=== PATIENT | female | born 1950 | race African-American/Black ===

== ENCOUNTER 2018-07-18 15:54 | Emergency (ER) | payer MEDICARE, MEDICAID ==
[~2018-07-18] VITALS: Ht 172.7 cm; Wt 78.0 kg
[~2018-07-18 15:54] MED LIST: HYDR12.54 PO; METO-539 PO; VALS80TA2 PO
[2018-07-18] MEDS ORDERED: SODIUM CHLORIDE 0.9% 1,000 ML IV ONE (16:31)
[2018-07-18] MEDS ORDERED: ONDANSETRON HCL 4MG/2ML INJ IV STA (16:31)
[2018-07-18] MEDS ORDERED: MORPHINE SULFATE 4 MG/ML CPJ (NOT FOR IM USE) IV STA (16:31)
[2018-07-18 16:49] LABS: BASOPHILS % 0.6 % (0.0-2.0); EOSINOPHILS % 0.3 % (0.0-5.0); HEMATOCRIT. 38.2 % (36.0-48.0); HEMOGLOBIN. 12.4 g/dL (12.0-16.0); LYMPHOCYTES % 29.3 % (20.0-50.0); MEAN CORPUSCULAR HEMOGLOBIN 30.1 pg (28.0-32.0); MEAN CORPUSCULAR VOLUME 92.8 fL (81.0-99.0); MONOCYTES % 3.7 % (2.0-8.0); NEUTROPHILS % 66.1 % (40.0-76.0); PLATELET 170 x1000/uL (130-400); RED BLOOD CELL COUNT 4.12 mill/uL (4.2-5.4); RED CELL DISTRIBUTION WIDTH 14.8 % (11.6-14.6)
[2018-07-18 16:54] LABS: CHLORIDE 105 mEq/L (98-107)
[2018-07-18 16:56] LABS: PROTHROMBIN TIME 10.1 sec (9.1-11.1)
[2018-07-18] MEDS ORDERED: KETOROLAC 15MG/ML VIAL IV ONE (18:15)
[2018-07-18 18:54] VITALS: BP 165/81
== END 2018-07-18 19:08 | disposition home or self-care (01) ==
LOC: ER 16:41 → CANBEDREQ 19:27
DX: M79.10 Myalgia, unspecified site (principal); I10 Essential (primary) hypertension; Z96.659 Presence of unspecified artificial knee joint; Z98.890 Other specified postprocedural states
CPT/HCPCS: 36415; 71045; 80053; 85025; 85610; 93005; 96374; 96375; 99285; C1893; J1885; J2270; J2405; J7030

== ENCOUNTER 2018-11-22 12:36 | Inpatient (IN) | payer MEDICARE, MEDICAID ==
[~2018-11-22] VITALS: Ht 167.6 cm; Wt 86.7 kg
[2018-11-22] MEDS ORDERED: MORPHINE SULFATE 2 MG/ML CPJ (NOT FOR IM USE) IV ONE (14:30)
[2018-11-22] MEDS ORDERED: MORPHINE SULFATE 4 MG/ML CPJ (NOT FOR IM USE) IV NR (15:30)
[2018-11-22 16:42] LABS: BASOPHILS % 1.4 % (0.0-2.0); HEMATOCRIT. 35.2 % (36.0-48.0); HEMOGLOBIN. 11.2 g/dL (12.0-16.0); LYMPHOCYTES % 54.6 % (20.0-50.0); MEAN CORPUSCULAR HEMOGLOBIN 28.5 pg (28.0-32.0); MEAN CORPUSCULAR VOLUME 89.4 fL (81.0-99.0); MEAN PLATELET VOLUME 9.6 fl (7.4-10.4); MONOCYTES % 10.1 % (2.0-8.0); NEUTROPHILS % 28.9 % (40.0-76.0); PLATELET 134 x1000/uL (130-400); RED BLOOD CELL COUNT 3.94 mill/uL (4.2-5.4); RED CELL DISTRIBUTION WIDTH 14.5 % (11.6-14.6)
[2018-11-22 16:48] LABS: CHLORIDE 111 mEq/L (98-107)
[2018-11-22 16:50] LABS: PARTIAL THROMBOPLASTIN TIME 24.6 sec (23.4-31.0); PROTHROMBIN TIME 9.9 sec (9.1-11.1)
[2018-11-22 16:55] LABS: CLARITY URINE CLEAR (CLEAR); COLOR URINE YELLOW (YELLOW); KETONES URINE NEGATIVE (NEGATIVE); LEUKOCYTE ESTERASE URINE TRACE (NEGATIVE); NITRITE URINE NEGATIVE (NEGATIVE); OCCULT BLOOD URINE NEGATIVE (NEGATIVE); PROTEIN URINE NEGATIVE (NEGATIVE); SPECIFIC GRAVITY URINE 1.015 (1.005-1.030); UROBILINOGEN URINE 0.2 E.U./dL (0.2-1.0)
[2018-11-22] MEDS ORDERED: GADOBENATE DIMEGLUMINE 529 MG/ML 10ML IV ONE (19:05)
[2018-11-22] MEDS ORDERED: DOCUSATE SODIUM 100MG CAPSULE PO PRN (20:00)
[2018-11-22] MEDS ORDERED: TRAMADOL 50MG TABLET PO PRN (20:00)
[2018-11-22] MEDS ORDERED: NITROGLYCERIN 0.4MG TABLET SL SL PRN (20:00)
[2018-11-22] MEDS ORDERED: MAGNESIUM/ALUMINUM HYDROXIDE/SIMETHICONE 30ML UDC PO PRN (20:00)
[2018-11-22] MEDS ORDERED: NA PHOS,M-B/NA PHOS,DI-BA ENEMA 118ML PR PRN (20:00)
[2018-11-22] MEDS ORDERED: LORAZEPAM 0.5MG TABLET PO PRN (20:00)
[2018-11-22] MEDS ORDERED: IPRATROPIUM/ALBUTEROL 0.5-3(2.5)MG/3ML NEB INH PRN (20:00)
[2018-11-22] MEDS ORDERED: ACETAMINOPHEN 325MG TABLET PO PRN (20:00)
[2018-11-22] MEDS ORDERED: ONDANSETRON HCL 4MG/2ML INJ IV PRN (20:00)
[2018-11-22] MEDS ORDERED: GUAIFENESIN 200MG/10ML SUGAR FREE UDC PO PRN (20:00)
[2018-11-23] VITALS (7 sets, daily range): BP systolic 120–148; BP diastolic 66–75
[2018-11-23] MEDS ORDERED: NIFE10CA PO (00:24)
[2018-11-23] MEDS ORDERED: IBUP50DR2 PO (00:26)
[2018-11-23] MEDS ORDERED: HYDR-4009 PO (00:26)
[2018-11-23] MEDS ORDERED: LENA2.5C PO (00:27)
[2018-11-23] MEDS: MORPHINE SULFATE 4 MG/ML CPJ (NOT FOR IM USE) IV PRN ×4 (00:47→20:00)
[2018-11-23] MEDS ORDERED: ZOLPIDEM TARTRATE 5MG TABLET PO PRN (00:52)
[2018-11-23] MEDS: CEFTRIAXONE 1 G PREMIX 50 ML IV SCH (02:26)
[2018-11-23] MEDS: ENOXAPARIN 40MG/0.4ML SYR SUBCUT SCH (08:55)
[2018-11-23] MEDS: ZINC SULFATE 220 MG ( 50 ) CAPSULE PO SCH (08:55)
[2018-11-23] MEDS: FAMOTIDINE 20MG TABLET PO SCH ×2 (08:55→20:00)
[2018-11-23] MEDS: METOPROLOL TARTRATE 25MG TABLET PO SCH ×2 (08:55→20:00)
[2018-11-23] MEDS: ASCORBIC ACID 500 MG TABLET PO SCH ×2 (08:55→20:00)
[2018-11-23] MEDS ORDERED: INFLUENZA VIRUS VACCINE(AFLURIA) 0.5ML SYR IM ONE (13:00)
[2018-11-24] VITALS: BP 170/88
[2018-11-24] MEDS: MORPHINE SULFATE 4 MG/ML CPJ (NOT FOR IM USE) IV PRN ×6 (00:27→22:36)
[2018-11-24] MEDS: CLONIDINE 0.1MG TABLET PO PRN (00:27)
[2018-11-24] MEDS: CEFTRIAXONE 1 G PREMIX 50 ML IV SCH (01:49)
[2018-11-24 04:00] VITALS: BP 142/60
[2018-11-24 08:00] VITALS: BP 137/64
[2018-11-24] MEDS: METOPROLOL TARTRATE 25MG TABLET PO SCH ×2 (09:20→20:13)
[2018-11-24] MEDS: ZINC SULFATE 220 MG ( 50 ) CAPSULE PO SCH (09:20)
[2018-11-24] MEDS: ASCORBIC ACID 500 MG TABLET PO SCH ×2 (09:20→20:12)
[2018-11-24] MEDS: FAMOTIDINE 20MG TABLET PO SCH ×2 (09:20→20:12)
[2018-11-24] MEDS: ENOXAPARIN 40MG/0.4ML SYR SUBCUT SCH (09:21)
[2018-11-24 12:00] VITALS: BP 142/75
[2018-11-24 16:00] VITALS: BP 136/69
[2018-11-24 20:00] VITALS: BP 139/76
[2018-11-25] VITALS: BP 137/56
[2018-11-25 04:00] VITALS: BP 148/87
[2018-11-25] MEDS: MORPHINE SULFATE 4 MG/ML CPJ (NOT FOR IM USE) IV PRN ×2 (04:25→09:17)
[2018-11-25] MEDS ORDERED: CEFTRIAXONE 1 G PREMIX 50 ML IV SCH (05:00)
[2018-11-25 08:00] VITALS: BP 165/71
[2018-11-25] MEDS: ENOXAPARIN 40MG/0.4ML SYR SUBCUT SCH (08:31)
[2018-11-25] MEDS: FAMOTIDINE 20MG TABLET PO SCH (08:31)
[2018-11-25] MEDS: ZINC SULFATE 220 MG ( 50 ) CAPSULE PO SCH (08:32)
[2018-11-25] MEDS: ASCORBIC ACID 500 MG TABLET PO SCH (08:32)
[2018-11-25] MEDS: METOPROLOL TARTRATE 25MG TABLET PO SCH (08:32)
[2018-11-25 12:12] VITALS: BP 170/78
[2018-11-25] MEDS: CLONIDINE 0.1MG TABLET PO PRN (12:26)
[2018-11-25 12:33] VITALS: BP 170/78
[2018-11-25 13:15] VITALS: BP 163/71
== END 2018-11-25 13:30 | disposition home health service (06) | DRG 690 ==
LOC: ER 12:36 → 5WST 21:27 → EDBEDREQTM 21:29 → EDBEDREQ 21:29 → ENRESERV 22:45
PROVIDERS: ADMIT Internal Medicine; ATTEND Internal Medicine
DX: N39.0 Urinary tract infection, site not specified (principal); C90.00 Multiple myeloma not having achieved remission; I10 Essential (primary) hypertension; Z96.659 Presence of unspecified artificial knee joint; R26.2 Difficulty in walking, not elsewhere classified; D63.8 Anemia in other chronic diseases classified elsewhere; M19.90 Unspecified osteoarthritis, unspecified site; M48.061 Spinal stenosis, lumbar region without neurogenic claudication; D72.819 Decreased white blood cell count, unspecified; Z79.899 Other long term (current) drug therapy; Z85.038 Personal history of other malignant neoplasm of large intestine; Z92.3 Personal history of irradiation; Z86.73 Personal history of transient ischemic attack (TIA), and cerebral infarction without residual deficits
CPT/HCPCS: 36415; 70551; 71045; 72141; 72146; 72158; 80061; 83036; 83880; 84484; 90686; 93005; 93970; 96374; 97116; 97162; 97166; 97530; 99285; A9577; J0696; J1650; J2270; J7040

== ENCOUNTER 2019-03-15 13:40 | Emergency (ER) | payer MEDICARE, MEDICAID ==
[~2019-03-15] VITALS: Ht 165.1 cm; Wt 83.0 kg
[~2019-03-15 13:40] MED LIST changes: +HYDR-4009 PO; -HYDR12.54 PO; +IBUP50DR2 PO; +LENA2.5C PO; +NIFE10CA PO
[2019-03-15] MEDS ORDERED: TRAMADOL 50MG TABLET PO ONE (17:00)
[2019-03-15 17:25] LABS: EOSINOPHILS % 4.6 % (0.0-5.0); HEMATOCRIT. 29.6 % (36.0-48.0); HEMOGLOBIN. 9.6 g/dL (12.0-16.0); LYMPHOCYTES % 53.4 % (20.0-50.0); MEAN CORPUSCULAR HEMOGLOBIN 28.8 pg (28.0-32.0); MEAN CORPUSCULAR VOLUME 88.7 fL (81.0-99.0); MEAN PLATELET VOLUME 9.2 fl (7.4-10.4); MONOCYTES % 14.1 % (2.0-8.0); NEUTROPHILS % 26.9 % (40.0-76.0); PLATELET 117 x1000/uL (130-400); RED BLOOD CELL COUNT 3.34 mill/uL (4.2-5.4); RED CELL DISTRIBUTION WIDTH 14.9 % (11.6-14.6)
[2019-03-15 17:28] LABS: CHLORIDE 111 mEq/L (98-107); PROTHROMBIN TIME 10.3 sec (9.6-11.0)
[2019-03-15 17:48] LABS: CLARITY URINE CLEAR (CLEAR); COLOR URINE YELLOW (YELLOW); KETONES URINE NEGATIVE (NEGATIVE); LEUKOCYTE ESTERASE URINE TRACE (NEGATIVE); NITRITE URINE NEGATIVE (NEGATIVE); OCCULT BLOOD URINE NEGATIVE (NEGATIVE); PROTEIN URINE NEGATIVE (NEGATIVE); SPECIFIC GRAVITY URINE 1.023 (1.005-1.030); UROBILINOGEN URINE 0.2 E.U./dL (0.2-1.0)
[2019-03-15 19:38] VITALS: BP 113/80
== END 2019-03-15 19:45 | disposition home or self-care (01) ==
LOC: ER 16:27
DX: M54.5 Low back pain (principal); I10 Essential (primary) hypertension; C90.00 Multiple myeloma not having achieved remission; Z98.890 Other specified postprocedural states; Z88.5 Allergy status to narcotic agent; Z79.899 Other long term (current) drug therapy
CPT/HCPCS: 36415; 72131; 99284

== ENCOUNTER 2019-04-15 19:48 | Emergency (ER) | payer MEDICARE, MEDICAID ==
[~2019-04-15] VITALS: Ht 170.2 cm; Wt 77.0 kg
[2019-04-15] MEDS ORDERED: KETOROLAC 60MG/2ML VIAL IM ONE (20:15)
[2019-04-15] MEDS ORDERED: CYCLOBENZAPRINE 10MG TABLET PO ONE (20:15)
[2019-04-15 22:03] VITALS: BP 129/76
== END 2019-04-15 22:06 | disposition home or self-care (01) ==
LOC: ER 19:48
DX: G89.29 Other chronic pain (principal); M54.5 Low back pain; M79.604 Pain in right leg; I10 Essential (primary) hypertension; Z98.890 Other specified postprocedural states; Z79.899 Other long term (current) drug therapy; Z88.5 Allergy status to narcotic agent; Z85.9 Personal history of malignant neoplasm, unspecified
CPT/HCPCS: 96372; 99283; J1885

== ENCOUNTER 2019-05-17 13:38 | Emergency (ER) | payer MEDICARE, MEDICAID ==
[~2019-05-17] VITALS: Ht 165.1 cm; Wt 86.0 kg
[2019-05-17] MEDS ORDERED: SODIUM CHLORIDE 0.9% 1,000 ML IV ONE (13:59)
[2019-05-17] MEDS ORDERED: MORPHINE SULFATE 4 MG/ML CPJ (NOT FOR IM USE) IV STA ×2 (13:59→16:10)
[2019-05-17] MEDS ORDERED: ONDANSETRON HCL 4MG/2ML INJ IV STA ×2 (13:59→16:10)
[2019-05-17 14:57] LABS: BASOPHILS % 2.9 % (0.0-2.0); EOSINOPHILS % 3.1 % (0.0-5.0); HEMATOCRIT. 28.6 % (36.0-48.0); HEMOGLOBIN. 9.3 g/dL (12.0-16.0); LYMPHOCYTES % 36.8 % (20.0-50.0); MEAN CORPUSCULAR VOLUME 89.4 fL (81.0-99.0); MEAN PLATELET VOLUME 9.5 fl (7.4-10.4); MONOCYTES % 11.2 % (2.0-8.0); PLATELET 121 x1000/uL (130-400)
[2019-05-17 15:02] LABS: CHLORIDE 112 mEq/L (98-107)
[2019-05-17 15:03] LABS: PROTHROMBIN TIME 10.5 sec (9.6-11.0)
[2019-05-17] MEDS ORDERED: KETOROLAC 30MG/ML VIAL IV ONE (15:15)
[2019-05-17 16:34] LABS: CLARITY URINE CLEAR (CLEAR); COLOR URINE YELLOW (YELLOW); KETONES URINE TRACE (NEGATIVE); LEUKOCYTE ESTERASE URINE 1+ (NEGATIVE); NITRITE URINE NEGATIVE (NEGATIVE); OCCULT BLOOD URINE NEGATIVE (NEGATIVE); PROTEIN URINE NEGATIVE (NEGATIVE); SPECIFIC GRAVITY URINE 1.011 (1.005-1.030); UROBILINOGEN URINE 0.2 E.U./dL (0.2-1.0)
[2019-05-17] MEDS ORDERED: CEFTRIAXONE 1 G PREMIX 50 ML IV ONE (16:45)
[2019-05-17 17:40] VITALS: BP 130/72
== END 2019-05-17 17:51 | disposition home or self-care (01) ==
LOC: ER 13:38
DX: M54.9 Dorsalgia, unspecified (principal); M79.605 Pain in left leg; M79.604 Pain in right leg; N39.0 Urinary tract infection, site not specified; E86.0 Dehydration; D61.818 Other pancytopenia; I10 Essential (primary) hypertension; Z85.79 Personal history of other malignant neoplasms of lymphoid, hematopoietic and related tissues; Z85.038 Personal history of other malignant neoplasm of large intestine; Z90.49 Acquired absence of other specified parts of digestive tract; Z98.890 Other specified postprocedural states; Z92.21 Personal history of antineoplastic chemotherapy; Z88.6 Allergy status to analgesic agent; Z79.899 Other long term (current) drug therapy; W18.11XA Fall from or off toilet without subsequent striking against object, initial encounter; Y93.89 Activity, other specified; Y92.89 Other specified places as the place of occurrence of the external cause; Y99.8 Other external cause status
CPT/HCPCS: 36415; 71045; 80053; 81003; 83605; 84484; 85025; 85610; 93005; 96374; 96375; 96376; 99284; J0696; J1885; J2270; J2405; J7030

== ENCOUNTER 2019-07-07 09:25 | Emergency (ER) | payer MEDICARE, MEDICAID ==
[~2019-07-07] VITALS: Ht 165.1 cm; Wt 70.0 kg
[~2019-07-07 09:25] MED LIST changes: -VALS80TA2 PO
[2019-07-07] MEDS ORDERED: KETOROLAC 30MG/ML VIAL IV STA (09:56)
[2019-07-07] MEDS ORDERED: TRAMADOL 50MG TABLET PO ONE (10:00)
[2019-07-07 10:05] VITALS: BP 188/84
[2019-07-07 10:17] LABS: BASOPHILS % 2.7 % (0.0-2.0); EOSINOPHILS % 1.7 % (0.0-5.0); HEMATOCRIT. 32.4 % (36.0-48.0); HEMOGLOBIN. 10.5 g/dL (12.0-16.0); LYMPHOCYTES % 24.8 % (20.0-50.0); MEAN CORPUSCULAR VOLUME 89.7 fL (81.0-99.0); MEAN PLATELET VOLUME 8.7 fl (7.4-10.4); MONOCYTES % 11.4 % (2.0-8.0); NEUTROPHILS % 59.4 % (40.0-76.0); PLATELET 221 x1000/uL (130-400); RED BLOOD CELL COUNT 3.61 mill/uL (4.2-5.4); RED CELL DISTRIBUTION WIDTH 15.8 % (11.6-14.6)
[2019-07-07 10:18] LABS: CHLORIDE 111 mEq/L (98-107); PROTHROMBIN TIME 10.8 sec (9.6-11.0)
[2019-07-07 12:00] LABS: CLARITY URINE CLEAR (CLEAR); COLOR URINE YELLOW (YELLOW); KETONES URINE NEGATIVE (NEGATIVE); LEUKOCYTE ESTERASE URINE NEGATIVE (NEGATIVE); NITRITE URINE NEGATIVE (NEGATIVE); OCCULT BLOOD URINE NEGATIVE (NEGATIVE); PH URINE 5.5 (4.5-8.0); PROTEIN URINE 1+ (NEGATIVE); SPECIFIC GRAVITY URINE 1.013 (1.005-1.030); UROBILINOGEN URINE 0.2 E.U./dL (0.2-1.0)
[2019-07-11] MEDS ORDERED: AMLO10TA80 PO (08:31)
[2019-07-11] MEDS ORDERED: METR-167 MT (08:33)
[2019-07-11] MEDS ORDERED: LACT1CAP58 MT (08:33)
== END 2019-07-07 12:26 | disposition home or self-care (01) ==
LOC: ER 09:25
DX: M25.562 Pain in left knee (principal); M25.561 Pain in right knee; Z88.6 Allergy status to analgesic agent; I10 Essential (primary) hypertension; Z85.89 Personal history of malignant neoplasm of other organs and systems; Z98.890 Other specified postprocedural states
CPT/HCPCS: 36415; 73560; 80053; 81003; 85025; 85610; 96374; 99284; J1885

== ENCOUNTER 2019-07-08 15:36 | Inpatient (IN) | payer MEDICARE, MEDICAID ==
[~2019-07-08] VITALS: Ht 167.6 cm; Wt 77.1 kg
[2019-07-08 17:14] LABS: BASOPHILS % 1.5 % (0.0-2.0); EOSINOPHILS % 1.5 % (0.0-5.0); HEMOGLOBIN. 11.9 g/dL (12.0-16.0); LYMPHOCYTES % 31.5 % (20.0-50.0); MEAN CORPUSCULAR HEMOGLOBIN 29.1 pg (28.0-32.0); MEAN CORPUSCULAR VOLUME 90.2 fL (81.0-99.0); MEAN PLATELET VOLUME 8.2 fl (7.4-10.4); NEUTROPHILS % 55.5 % (40.0-76.0); PLATELET 228 x1000/uL (130-400); RED CELL DISTRIBUTION WIDTH 15.8 % (11.6-14.6)
[2019-07-08 17:18] LABS: CHLORIDE 107 mEq/L (98-107)
[2019-07-08 17:19] LABS: PROTHROMBIN TIME 10.7 sec (9.6-11.0)
[2019-07-08] MEDS ORDERED: ACETAMINOPHEN 325MG TABLET PO ONE (17:45)
[2019-07-08 18:00] LABS: CLARITY URINE CLEAR (CLEAR); COLOR URINE YELLOW (YELLOW); KETONES URINE NEGATIVE (NEGATIVE); LEUKOCYTE ESTERASE URINE 2+ (NEGATIVE); NITRITE URINE NEGATIVE (NEGATIVE); OCCULT BLOOD URINE NEGATIVE (NEGATIVE); PH URINE 5.5 (4.5-8.0); PROTEIN URINE TRACE (NEGATIVE); SPECIFIC GRAVITY URINE 1.005 (1.005-1.030); UROBILINOGEN URINE 0.2 E.U./dL (0.2-1.0)
[2019-07-08] MEDS ORDERED: ONDANSETRON HCL 4MG/2ML INJ IV PRN (18:45)
[2019-07-08] MEDS: ACETAMINOPHEN 325MG TABLET PO PRN (20:39)
[2019-07-08 21:20] LABS: VITAMIN B12 SERUM > 2000.0 pg/mL (211-911)
[2019-07-08] MEDS: ENOXAPARIN 40MG/0.4ML SYR SUBCUT SCH (21:42)
[2019-07-08 22:00] VITALS: BP 174/83
[2019-07-08 22:30] VITALS: BP 174/83
[2019-07-08] MEDS: CLONIDINE 0.1MG TABLET PO PRN (23:10)
[2019-07-09] VITALS: BP 162/84
[2019-07-09 01:44] LABS: CREATINE KINASE MB FRACTION 1.3 ng/mL (0.5-3.6)
[2019-07-09] MEDS: ACETAMINOPHEN 325MG TABLET PO PRN ×3 (02:15→16:50)
[2019-07-09 04:00] VITALS: BP 133/79
[2019-07-09 07:21] LABS: BASOPHILS % 1.6 % (0.0-2.0); EOSINOPHILS % 2.7 % (0.0-5.0); HEMATOCRIT. 32.1 % (36.0-48.0); HEMOGLOBIN. 10.3 g/dL (12.0-16.0); MEAN CORPUSCULAR HEMOGLOBIN 28.8 pg (28.0-32.0); MEAN PLATELET VOLUME 8.4 fl (7.4-10.4); MONOCYTES % 13.4 % (2.0-8.0); NEUTROPHILS % 43.3 % (40.0-76.0); PLATELET 198 x1000/uL (130-400); RED BLOOD CELL COUNT 3.56 mill/uL (4.2-5.4); RED CELL DISTRIBUTION WIDTH 15.8 % (11.6-14.6)
[2019-07-09 08:00] VITALS: BP 146/78
[2019-07-09 08:02] LABS: CHLORIDE 108 mEq/L (98-107)
[2019-07-09 08:12] LABS: CREATINE KINASE MB FRACTION 1.3 ng/mL (0.5-3.6)
[2019-07-09] MEDS ORDERED: AMLODIPINE 5MG TABLET PO SCH (09:30)
[2019-07-09] MEDS ORDERED: POTASSIUM CHLORIDE 20MEQ TABLET SR PO SCH (09:30)
[2019-07-09 10:36] LABS: METHADONE URINE SCREEN NEGATIVE (NEGATIVE); OPIATES URINE SCREEN NEGATIVE (NEGATIVE)
[2019-07-09 10:37] LABS: *AMPHETAMINES SCREEN URINE NEGATIVE (NEGATIVE); *BARBITURATES SCREEN URINE NEGATIVE (NEGATIVE); *BENZODIAZEPINES SCREEN URINE PRESUMTIVE POSITIVE (NEGATIVE); *COCAINE SCREEN URINE NEGATIVE (NEGATIVE); CANNABINOID URINE SCREEN NEGATIVE (NEGATIVE); PHENCYCLIDINE URINE SCREEN NEGATIVE (NEGATIVE)
[2019-07-09] MEDS: CLONIDINE 0.1MG TABLET PO PRN (11:48)
[2019-07-09] MEDS: FOLIC ACID 1MG TABLET PO SCH (11:48)
[2019-07-09] MEDS: TRAMADOL HCL/ACETAMINOPHEN 37.5/325MG TABLET PO PRN ×2 (11:49→20:33)
[2019-07-09 12:00] VITALS: BP 190/91
[2019-07-09 16:00] VITALS: BP 156/84
[2019-07-09 20:00] VITALS: BP 163/80
[2019-07-09] MEDS: ENOXAPARIN 40MG/0.4ML SYR SUBCUT SCH (20:34)
[2019-07-10] VITALS (9 sets, daily range): BP systolic 121–168; BP diastolic 70–96
[2019-07-10 07:03] LABS: EOSINOPHILS % 3.1 % (0.0-5.0); HEMATOCRIT. 29.4 % (36.0-48.0); HEMOGLOBIN. 9.6 g/dL (12.0-16.0); LYMPHOCYTES % 47.4 % (20.0-50.0); MEAN CORPUSCULAR HEMOGLOBIN 29.3 pg (28.0-32.0); MEAN CORPUSCULAR VOLUME 89.2 fL (81.0-99.0); MEAN PLATELET VOLUME 8.9 fl (7.4-10.4); MONOCYTES % 12.8 % (2.0-8.0); NEUTROPHILS % 34.7 % (40.0-76.0); PLATELET 192 x1000/uL (130-400); RED BLOOD CELL COUNT 3.29 mill/uL (4.2-5.4); RED CELL DISTRIBUTION WIDTH 15.8 % (11.6-14.6)
[2019-07-10 07:13] LABS: CHLORIDE 110 mEq/L (98-107)
[2019-07-10] MEDS ORDERED: AMLODIPINE 5MG TABLET PO SCH (09:00)
[2019-07-10] MEDS: FOLIC ACID 1MG TABLET PO SCH (10:04)
[2019-07-10] MEDS: POTASSIUM CHLORIDE 20MEQ TABLET SR PO SCH (10:05)
[2019-07-10] MEDS: CLONIDINE 0.1MG TABLET PO PRN ×2 (10:06→17:44)
[2019-07-10] MEDS: TRAMADOL HCL/ACETAMINOPHEN 37.5/325MG TABLET PO PRN ×2 (10:08→20:33)
[2019-07-10] MEDS ORDERED: LOSARTAN POTASSIUM 50 MG TABLET PO SCH (10:30)
[2019-07-10] MEDS: ACETAMINOPHEN 325MG TABLET PO PRN (15:38)
[2019-07-10] MEDS: METRONIDAZOLE 500MG TABLET PO SCH ×2 (17:16→20:32)
[2019-07-10] MEDS: ENOXAPARIN 40MG/0.4ML SYR SUBCUT SCH (20:32)
[2019-07-11] VITALS: BP 158/78
[2019-07-11 04:00] VITALS: BP_SYST 158; BP_SYST 160; BP_SYST 164; BP_DIAS 81; BP_DIAS 83; BP_DIAS 85
[2019-07-11] MEDS: METRONIDAZOLE 500MG TABLET PO SCH (04:01)
[2019-07-11] MEDS: TRAMADOL HCL/ACETAMINOPHEN 37.5/325MG TABLET PO PRN ×2 (04:03→09:25)
[2019-07-11 07:16] LABS: HEMATOCRIT. 31.5 % (36.0-48.0); HEMOGLOBIN. 10.2 g/dL (12.0-16.0); MEAN CORPUSCULAR HEMOGLOBIN 28.9 pg (28.0-32.0); MEAN CORPUSCULAR VOLUME 89.1 fL (81.0-99.0); MEAN PLATELET VOLUME 8.8 fl (7.4-10.4); PLATELET 192 x1000/uL (130-400); RED BLOOD CELL COUNT 3.53 mill/uL (4.2-5.4); RED CELL DISTRIBUTION WIDTH 15.5 % (11.6-14.6)
[2019-07-11 08:00] VITALS: BP 171/83
[2019-07-11] MEDS ORDERED: AMLO10TA80 PO (08:31)
[2019-07-11] MEDS ORDERED: LACT1CAP58 MT (08:33)
[2019-07-11] MEDS ORDERED: METR-167 MT (08:33)
[2019-07-11] MEDS ORDERED: AMLODIPINE 10MG TABLET PO SCH (09:00)
[2019-07-11] MEDS ORDERED: LOSARTAN POTASSIUM 50 MG TABLET PO SCH (09:00)
[2019-07-11] MEDS ORDERED: LACTOBACILLUS GG CAPSULE PO SCH (09:00)
[2019-07-11] MEDS: POTASSIUM CHLORIDE 20MEQ TABLET SR PO SCH (09:23)
[2019-07-11] MEDS: FOLIC ACID 1MG TABLET PO SCH (09:25)
[2019-07-11 11:58] VITALS: BP 171/83
[2019-07-11] MEDS: ACETAMINOPHEN 325MG TABLET PO PRN (13:57)
[2019-07-11 21:30] LABS: PLATELET ESTIMATE NORMAL
[2019-07-13 04:07] LABS: OVA & PARASITE EXAM Final report (.)
== END 2019-07-11 14:03 | disposition home or self-care (01) | DRG 74 ==
LOC: ER 17:46 → 8WST 18:02 → ENRESERV 19:52
PROVIDERS: ADMIT Internal Medicine Geriatric Medicine; ATTEND Internal Medicine Geriatric Medicine
DX: G90.8 Other disorders of autonomic nervous system (principal); C90.00 Multiple myeloma not having achieved remission; A04.72 Enterocolitis due to Clostridium difficile, not specified as recurrent; R29.6 Repeated falls; E78.00 Pure hypercholesterolemia, unspecified; E87.6 Hypokalemia; M48.02 Spinal stenosis, cervical region; M19.90 Unspecified osteoarthritis, unspecified site; I11.9 Hypertensive heart disease without heart failure; S80.12XA Contusion of left lower leg, initial encounter; S80.11XA Contusion of right lower leg, initial encounter; Z96.612 Presence of left artificial shoulder joint; M24.412 Recurrent dislocation, left shoulder; M75.102 Unspecified rotator cuff tear or rupture of left shoulder, not specified as traumatic; I65.23 Occlusion and stenosis of bilateral carotid arteries; D46.9 Myelodysplastic syndrome, unspecified; G89.4 Chronic pain syndrome; E78.5 Hyperlipidemia, unspecified; Z85.038 Personal history of other malignant neoplasm of large intestine; Z86.73 Personal history of transient ischemic attack (TIA), and cerebral infarction without residual deficits; Z79.899 Other long term (current) drug therapy; Z88.5 Allergy status to narcotic agent; W18.39XA Other fall on same level, initial encounter; Y93.89 Activity, other specified; Y92.89 Other specified places as the place of occurrence of the external cause; Y99.8 Other external cause status
CPT/HCPCS: 36415; 71045; 72170; 73560; 80048; 80061; 80305; 81003; 82553; 82607; 82746; 83036; 83540; 83550; 83880; 84443; 84484; 87015; 87045; 87177; 87209; 87427; 87449; 87493; 89055; 93005; 93306; 93880; 93970; 96372; 97162; 99285; J1650

== ENCOUNTER 2019-07-28 09:17 | Emergency (ER) | payer MEDICARE, MEDICAID ==
[~2019-07-28] VITALS: Ht 162.6 cm; Wt 85.0 kg
[~2019-07-28 09:17] MED LIST changes: +AMLO10TA80 PO; -HYDR-4009 PO; -IBUP50DR2 PO; +LACT1CAP58 MT; -LENA2.5C PO; -METO-539 PO; +METR-167 MT; -NIFE10CA PO
[2019-07-28] MEDS ORDERED: ONDANSETRON 4MG ODT PO ONE (09:45)
[2019-07-28] MEDS ORDERED: HYDROCODONE/ACETAMINOPHEN 5/325MG TABLET PO ONE (09:45)
[2019-07-28 14:15] VITALS: BP 154/77
== END 2019-07-28 14:30 | disposition home or self-care (01) ==
LOC: ER 09:17
DX: S09.8XXA Other specified injuries of head, initial encounter (principal); M54.9 Dorsalgia, unspecified; I10 Essential (primary) hypertension; E78.00 Pure hypercholesterolemia, unspecified; W06.XXXA Fall from bed, initial encounter; Y93.89 Activity, other specified; Y92.9 Unspecified place or not applicable; Z88.6 Allergy status to analgesic agent; Z79.82 Long term (current) use of aspirin; Z85.79 Personal history of other malignant neoplasms of lymphoid, hematopoietic and related tissues
CPT/HCPCS: 70450; 72100; 72170; 73030; 73080; 73090; 73562; 73590; 73610; 99284; J7040; Q0162

== ENCOUNTER 2019-08-08 13:11 | Emergency (ER) | payer MEDICARE, MEDICAID ==
[~2019-08-08] VITALS: Ht 162.6 cm; Wt 65.0 kg
[2019-08-08] MEDS ORDERED: MORPHINE SULFATE 4 MG/ML CPJ (NOT FOR IM USE) IV STA (15:06)
[2019-08-08] MEDS ORDERED: ONDANSETRON HCL 4MG/2ML INJ IV STA (15:06)
[2019-08-08 15:24] LABS: CHLORIDE 116 mEq/L (98-107)
[2019-08-08 15:25] LABS: BASOPHILS % 2.2 % (0.0-2.0); EOSINOPHILS % 2.9 % (0.0-5.0); HEMATOCRIT. 26.4 % (36.0-48.0); HEMOGLOBIN. 8.3 g/dL (12.0-16.0); LYMPHOCYTES % 32.2 % (20.0-50.0); MEAN CORPUSCULAR HEMOGLOBIN 28.7 pg (28.0-32.0); MEAN CORPUSCULAR VOLUME 91.2 fL (81.0-99.0); MEAN PLATELET VOLUME 8.7 fl (7.4-10.4); MONOCYTES % 14.2 % (2.0-8.0); NEUTROPHILS % 48.5 % (40.0-76.0); PLATELET 171 x1000/uL (130-400); RED BLOOD CELL COUNT 2.89 mill/uL (4.2-5.4); RED CELL DISTRIBUTION WIDTH 16.1 % (11.6-14.6)
[2019-08-08 18:41] VITALS: BP 188/90
== END 2019-08-08 18:42 | disposition home or self-care (01) ==
LOC: ER 13:11
DX: S52.592A Other fractures of lower end of left radius, initial encounter for closed fracture (principal); S52.122A Displaced fracture of head of left radius, initial encounter for closed fracture; R60.0 Localized edema; M79.605 Pain in left leg; M79.604 Pain in right leg; D64.9 Anemia, unspecified; W01.0XXA Fall on same level from slipping, tripping and stumbling without subsequent striking against object, initial encounter; Y93.89 Activity, other specified; Y92.89 Other specified places as the place of occurrence of the external cause; Z85.79 Personal history of other malignant neoplasms of lymphoid, hematopoietic and related tissues; Z92.21 Personal history of antineoplastic chemotherapy
CPT/HCPCS: 29105; 36415; 71045; 73060; 73090; 73130; 80053; 83880; 85025; 85610; 93005; 93970; 93971; 96374; 96375; 99284; J2270; J2405

== ENCOUNTER 2019-09-25 10:28 | Inpatient (IN) | payer MEDICARE, MEDICAID ==
[2019-09-25] VITALS (41 sets, daily range): BP systolic 77–139; BP diastolic 33–58
[~2019-09-25] VITALS: Ht 153.9 cm; Wt 80.7 kg
[~2019-09-25 10:28] MED LIST changes: -AMLO10TA80 PO
[2019-09-25] MEDS ORDERED: MIDAZOLAM HCL 50 MG in DEXTROSE 5% WATER 40 ML IV ONE (10:45)
[2019-09-25] MEDS ORDERED: SUCCINYLCHOLINE CHLORIDE 200MG/10ML IV ONE (10:45)
[2019-09-25] MEDS ORDERED: ETOMIDATE 2MG/ML 10ML VIAL IV ONE (10:45)
[2019-09-25] MEDS ORDERED: PANTOPRAZOLE SODIUM 40 MG/VIAL IV ONE (10:45)
[2019-09-25 10:57] LABS: BG BASE EXCESS -9.2 mmol/L (-2.0-2.0); BG CARBOXYHEMOGLOBIN 0.9 % (0.5-1.5); BG DEOXYHEMOGLOBIN 0.4 % (0.0-5.0); BG FRACTION INSPIRED OXYGEN 100; BG HCO3 ACT 15.8 mmol/L (22.0-26.0); BG METHEMOGLOBIN 0.4 % (0.0-1.5); BG OXYGEN SATURATION 99.6 % (92.0-98.5); BG OXYHEMOGLOBIN 98.3 % (94.0-97.0); BG PCO2 29.6 mmHg (35.0-45.0); BG PH 7.344 (7.350-7.450); BG PO2 466.4 mmHg (75.0-100.0); BG SAMPLE SITE RIGHT RADIAL; BG TIDAL VOLUME(mL) 500 mL; BG TOTAL HEMOGLOBIN 5.3 g/dL (12.0-18.0); BG VENT MODE VENT - A/C; BG VENT RATE 14 set
[2019-09-25 11:20] LABS: BASOPHILS % 0.5 % (0.0-2.0); EOSINOPHILS % 0.2 % (0.0-5.0); LYMPHOCYTES % 12.7 % (20.0-50.0); MEAN CORPUSCULAR HEMOGLOBIN 28.2 pg (28.0-32.0); MEAN CORPUSCULAR VOLUME 87.4 fL (81.0-99.0); MEAN PLATELET VOLUME 9.9 fl (7.4-10.4); MONOCYTES % 4.1 % (2.0-8.0); NEUTROPHILS % 82.5 % (40.0-76.0); PLATELET 129 x1000/uL (130-400); RED BLOOD CELL COUNT 1.88 mill/uL (4.2-5.4); RED CELL DISTRIBUTION WIDTH 15.3 % (11.6-14.6)
[2019-09-25 11:26] LABS: PROTHROMBIN TIME 10.5 sec (9.6-11.0)
[2019-09-25 11:29] LABS: HEMATOCRIT. 16.4 % (36.0-48.0); HEMOGLOBIN. 5.3 g/dL (12.0-16.0)
[2019-09-25 11:30] LABS: CHLORIDE 108 mEq/L (98-107)
[2019-09-25 11:33] LABS: ETHANOL BLOOD < 10 mg/dL
[2019-09-25 11:40] LABS: CLARITY URINE CLEAR (CLEAR); COLOR URINE YELLOW (YELLOW); KETONES URINE NEGATIVE (NEGATIVE); LEUKOCYTE ESTERASE URINE NEGATIVE (NEGATIVE); NITRITE URINE NEGATIVE (NEGATIVE); OCCULT BLOOD URINE NEGATIVE (NEGATIVE); PROTEIN URINE NEGATIVE (NEGATIVE); SPECIFIC GRAVITY URINE 1.008 (1.005-1.030); UROBILINOGEN URINE 0.2 E.U./dL (0.2-1.0)
[2019-09-25] MEDS ORDERED: KCL 10MEQ/50ML PREMIX 50 ML IV ONE ×2 (12:00→14:00)
[2019-09-25] MEDS ORDERED: KCL 20MEQ/100ML PREMIX 100 ML IV ONE (12:00)
[2019-09-25 13:25] LABS: BG CARBOXYHEMOGLOBIN 0.3 % (0.5-1.5); BG DEOXYHEMOGLOBIN 0.6 % (0.0-5.0); BG FRACTION INSPIRED OXYGEN 100; BG HCO3 ACT 15.9 mmol/L (22.0-26.0); BG METHEMOGLOBIN 0.3 % (0.0-1.5); BG OXYGEN SATURATION 99.4 % (92.0-98.5); BG OXYHEMOGLOBIN 98.8 % (94.0-97.0); BG PCO2 34.9 mmHg (35.0-45.0); BG PH 7.276 (7.350-7.450); BG PO2 387.4 mmHg (75.0-100.0); BG SAMPLE SITE RIGHT RADIAL; BG TIDAL VOLUME(mL) 500 mL; BG TOTAL HEMOGLOBIN 8.8 g/dL (12.0-18.0); BG VENT MODE VENT - A/C; BG VENT RATE 14 set
[2019-09-25] MEDS ORDERED: ACETAMINOPHEN 325MG TABLET PO PRN (14:00)
[2019-09-25] MEDS ORDERED: ONDANSETRON HCL 4MG/2ML INJ IV PRN (14:00)
[2019-09-25] MEDS ORDERED: NOREPINEPHRINE 4 MG in DEXT 5% WATER 246 ML IV PRN (14:30)
[2019-09-25] MEDS ORDERED: NOREPINEPHRINE 4MG/250ML PMX 250 ML IV ONE (14:30)
[2019-09-25] MEDS ORDERED: NOREPINEPHRINE 4MG in DEXT 5% WATER 250ML IV PRN (14:30)
[2019-09-25 14:46] LABS: HEMATOCRIT 24.5 % (36.0-48.0); HEMOGLOBIN 8.2 g/dL (12.0-16.0)
[2019-09-25] MEDS: DEXT 5%/0.45% NACL 1000ML 1,000 ML IV SCH (15:08)
[2019-09-25] MEDS: PROPOFOL 10MG/ML 100ML 100 ML IV SCH (15:33)
[2019-09-25] MEDS: IPRATROPIUM/ALBUTEROL 0.5-3(2.5)MG/3ML NEB HHN SCH ×2 (15:56→20:18)
[2019-09-25] MEDS: MIDODRINE HCL 5MG TABLET PO SCH ×3 (16:13→17:17)
[2019-09-25 18:19] LABS: TOTAL IRON BINDING CAPACITY 255 ug/dL (250-450)
[2019-09-25 18:38] LABS: VITAMIN B12 SERUM >2000 pg/mL pg/mL (211-911)
[2019-09-25 19:14] LABS: FERRITIN 207 ng/mL (10-291)
[2019-09-25] MEDS ORDERED: POTASSIUM CHLORIDE INJ 40 MEQ in DEXT 5% WATER 250 ML IV NR (21:00)
[2019-09-25] MEDS ORDERED: NOREPINEPHRINE 8 MG in DEXT 5% WATER 242 ML IV PRN (21:00)
[2019-09-25] MEDS: PANTOPRAZOLE SODIUM 40 MG/VIAL IV SCH (21:14)
[2019-09-25] MEDS ORDERED: NOREPINEPHRINE 16 MG in DEXT 5% WATER 484 ML IV PRN (22:54)
[2019-09-26] VITALS (89 sets, daily range): BP systolic 87–146; BP diastolic 37–86
[2019-09-26] MEDS: IPRATROPIUM/ALBUTEROL 0.5-3(2.5)MG/3ML NEB HHN SCH ×6 (00:15→20:37)
[2019-09-26 00:31] LABS: HEMATOCRIT 21.3 % (36.0-48.0); HEMOGLOBIN 7.2 g/dL (12.0-16.0)
[2019-09-26] MEDS: DEXT 5%/0.45% NACL 1000ML 1,000 ML IV SCH ×2 (00:53→18:03)
[2019-09-26] MEDS ORDERED: NOREPINEPHRINE 32 MG in DEXT 5% WATER 468 ML IV PRN (03:00)
[2019-09-26] MEDS: PROPOFOL 10MG/ML 100ML 100 ML IV SCH (04:08)
[2019-09-26 05:59] LABS: BASOPHILS % 0.4 % (0.0-2.0); EOSINOPHILS % 0.1 % (0.0-5.0); HEMATOCRIT. 24.2 % (36.0-48.0); LYMPHOCYTES % 10.3 % (20.0-50.0); MEAN CORPUSCULAR HEMOGLOBIN 29.6 pg (28.0-32.0); MEAN CORPUSCULAR VOLUME 86.5 fL (81.0-99.0); MEAN PLATELET VOLUME 9.8 fl (7.4-10.4); MONOCYTES % 7.6 % (2.0-8.0); NEUTROPHILS % 81.6 % (40.0-76.0); PLATELET 119 x1000/uL (130-400); RED CELL DISTRIBUTION WIDTH 15.2 % (11.6-14.6)
[2019-09-26 06:01] LABS: HEMOGLOBIN. 8.3 g/dL (12.0-16.0)
[2019-09-26] MEDS: PANTOPRAZOLE SODIUM 40 MG/VIAL IV SCH ×2 (08:22→20:50)
[2019-09-26] MEDS: MIDODRINE HCL 5MG TABLET PO SCH ×3 (08:22→18:09)
[2019-09-26] MEDS ORDERED: POTASSIUM CHLORIDE INJ 40 MEQ in DEXT 5% WATER 250 ML IV ONE (09:00)
[2019-09-26] MEDS ORDERED: PANTOPRAZOLE SODIUM 40 MG/VIAL IV SCH (09:00)
[2019-09-26] MEDS ORDERED: AMLO10TA4 PO (09:43)
[2019-09-26] MEDS ORDERED: HYDR-3280 PO (09:43)
[2019-09-26] MEDS ORDERED: DEXA4TAB PO (09:43)
[2019-09-26] MEDS ORDERED: PRAV80TA19 PO (09:43)
[2019-09-26] MEDS ORDERED: METO100T16 PO (09:43)
[2019-09-26] MEDS ORDERED: HYDR-4086 PO (09:43)
[2019-09-26] MEDS ORDERED: CARI350T27 PO (09:43)
[2019-09-26] MEDS ORDERED: IBUP-2029 PO (09:43)
[2019-09-26] MEDS ORDERED: VALS1TAB72 PO (09:43)
[2019-09-26] MEDS ORDERED: CARI-166 MT (09:43)
[2019-09-26] MEDS ORDERED: DOXA8TAB81 PO (09:43)
[2019-09-26] MEDS ORDERED: FURO-151 PO (09:43)
[2019-09-26] MEDS ORDERED: LISI-604 PO (09:43)
[2019-09-26] MEDS ORDERED: DIAZ10TA PO (09:43)
[2019-09-26 10:15] LABS: BG BASE EXCESS -6.5 mmol/L (-2.0-2.0); BG CARBOXYHEMOGLOBIN 0.1 % (0.5-1.5); BG DEOXYHEMOGLOBIN 0.8 % (0.0-5.0); BG FRACTION INSPIRED OXYGEN 60; BG HCO3 ACT 17.8 mmol/L (22.0-26.0); BG METHEMOGLOBIN 0.5 % (0.0-1.5); BG OXYGEN SATURATION 99.2 % (92.0-98.5); BG OXYHEMOGLOBIN 98.6 % (94.0-97.0); BG PCO2 30.9 mmHg (35.0-45.0); BG PH 7.378 (7.350-7.450); BG PO2 235.5 mmHg (75.0-100.0); BG SAMPLE SITE RIGHT RADIAL; BG TIDAL VOLUME(mL) 500 mL; BG TOTAL HEMOGLOBIN 8.8 g/dL (12.0-18.0); BG VENT MODE VENT - A/C; BG VENT RATE 14 set
[2019-09-26] MEDS: PROPOFOL 10MG/ML 100ML 100 ML IV PRN ×4 (10:46→23:17)
[2019-09-26] MEDS: FENTANYL CITRATE/PF 500 MCG in SODIUM CHLORIDE 0.9% 40 ML IV PRN (11:10)
[2019-09-26] MEDS: IRON SUCROSE COMPLEX 100 MG/5 ML ML IV SCH (11:46)
[2019-09-26] MEDS ORDERED: FENTANYL CITRATE/PF 50MCG/ML 2ML VIAL ONE (16:39)
[2019-09-26] MEDS ORDERED: MIDAZOLAM HCL 5 MG/5 ML VIAL ONE (16:39)
[2019-09-26] MEDS ORDERED: MIDAZOLAM HCL 5 MG/5 ML VIAL IV PRN (16:54)
[2019-09-27] VITALS (46 sets, daily range): BP systolic 91–146; BP diastolic 45–84
[2019-09-27] MEDS: IPRATROPIUM/ALBUTEROL 0.5-3(2.5)MG/3ML NEB HHN SCH ×6 (00:29→20:27)
[2019-09-27] MEDS: DEXT 5%/0.45% NACL 1000ML 1,000 ML IV SCH ×2 (03:19→16:00)
[2019-09-27] MEDS: FENTANYL CITRATE/PF 500 MCG in SODIUM CHLORIDE 0.9% 40 ML IV PRN (03:42)
[2019-09-27 06:08] LABS: BASOPHILS % 0.4 % (0.0-2.0); EOSINOPHILS % 0.3 % (0.0-5.0); HEMATOCRIT. 26.3 % (36.0-48.0); HEMOGLOBIN. 8.8 g/dL (12.0-16.0); LYMPHOCYTES % 11.4 % (20.0-50.0); MEAN CORPUSCULAR HEMOGLOBIN 29.3 pg (28.0-32.0); MEAN CORPUSCULAR VOLUME 87.4 fL (81.0-99.0); MEAN PLATELET VOLUME 9.5 fl (7.4-10.4); MONOCYTES % 8.7 % (2.0-8.0); NEUTROPHILS % 79.2 % (40.0-76.0); PLATELET 114 x1000/uL (130-400); RED BLOOD CELL COUNT 3.01 mill/uL (4.2-5.4); RED CELL DISTRIBUTION WIDTH 15.2 % (11.6-14.6)
[2019-09-27 07:24] LABS: BG BASE EXCESS -7.9 mmol/L (-2.0-2.0); BG CARBOXYHEMOGLOBIN 0.2 % (0.5-1.5); BG DEOXYHEMOGLOBIN 3.3 % (0.0-5.0); BG FRACTION INSPIRED OXYGEN 40; BG HCO3 ACT 16.3 mmol/L (22.0-26.0); BG METHEMOGLOBIN 0.3 % (0.0-1.5); BG OXYGEN SATURATION 96.7 % (92.0-98.5); BG OXYHEMOGLOBIN 96.2 % (94.0-97.0); BG PH 7.382 (7.350-7.450); BG PO2 97.9 mmHg (75.0-100.0); BG SAMPLE SITE RIGHT BRACHIAL; BG TIDAL VOLUME(mL) 500 mL; BG TOTAL HEMOGLOBIN 8.3 g/dL (12.0-18.0); BG VENT MODE VENT - A/C; BG VENT RATE 14 set
[2019-09-27] MEDS: IRON SUCROSE COMPLEX 100 MG/5 ML ML IV SCH (08:00)
[2019-09-27] MEDS: MIDODRINE HCL 5MG TABLET PO SCH (08:00)
[2019-09-27] MEDS: PANTOPRAZOLE SODIUM 40 MG/VIAL IV SCH ×2 (08:00→21:13)
[2019-09-27 08:42] LABS: CHLORIDE 114 mEq/L (98-107)
[2019-09-27] MEDS ORDERED: POTASSIUM CHLORIDE INJ 40 MEQ in DEXT 5% WATER 250 ML IV NR (10:00)
[2019-09-27 10:27] LABS: BG BASE EXCESS -7.5 mmol/L (-2.0-2.0); BG CARBOXYHEMOGLOBIN 0.3 % (0.5-1.5); BG DEOXYHEMOGLOBIN 2.7 % (0.0-5.0); BG FRACTION INSPIRED OXYGEN 40; BG HCO3 ACT 16.2 mmol/L (22.0-26.0); BG METHEMOGLOBIN 0.2 % (0.0-1.5); BG OXYGEN SATURATION 97.3 % (92.0-98.5); BG OXYHEMOGLOBIN 96.8 % (94.0-97.0); BG PCO2 26.4 mmHg (35.0-45.0); BG PH 7.405 (7.350-7.450); BG PO2 104.4 mmHg (75.0-100.0); BG PRESSURE SUPPORT 8; BG SAMPLE SITE RIGHT BRACHIAL; BG TOTAL HEMOGLOBIN 8.9 g/dL (12.0-18.0); BG VENT MODE VENT - CPAP
[2019-09-27] MEDS: SUCRALFATE 1G TABLET PO SCH ×3 (12:14→21:13)
[2019-09-28] VITALS (48 sets, daily range): BP systolic 96–131; BP diastolic 45–69
[2019-09-28] MEDS: IPRATROPIUM/ALBUTEROL 0.5-3(2.5)MG/3ML NEB HHN SCH ×6 (00:20→20:38)
[2019-09-28] MEDS: DEXT 5%/0.45% NACL 1000ML 1,000 ML IV SCH (02:25)
[2019-09-28 06:14] LABS: BASOPHILS % 0.2 % (0.0-2.0); EOSINOPHILS % 0.2 % (0.0-5.0); HEMATOCRIT. 23.7 % (36.0-48.0); HEMOGLOBIN. 7.9 g/dL (12.0-16.0); LYMPHOCYTES % 10.5 % (20.0-50.0); MEAN CORPUSCULAR HEMOGLOBIN 29.1 pg (28.0-32.0); MEAN CORPUSCULAR VOLUME 87.8 fL (81.0-99.0); MEAN PLATELET VOLUME 9.7 fl (7.4-10.4); MONOCYTES % 5.9 % (2.0-8.0); NEUTROPHILS % 83.2 % (40.0-76.0); PLATELET 118 x1000/uL (130-400); RED CELL DISTRIBUTION WIDTH 15.3 % (11.6-14.6)
[2019-09-28 06:22] LABS: CHLORIDE 115 mEq/L (98-107)
[2019-09-28] MEDS ORDERED: POTASSIUM CHLORIDE INJ 40 MEQ in DEXT 5% WATER 250 ML IV SCH (10:00)
[2019-09-28] MEDS: SUCRALFATE 1G TABLET PO SCH ×4 (10:04→22:19)
[2019-09-28] MEDS: IRON SUCROSE COMPLEX 100 MG/5 ML ML IV SCH (10:04)
[2019-09-28] MEDS: PANTOPRAZOLE SODIUM 40 MG/VIAL IV SCH ×2 (10:05→22:18)
[2019-09-28] MEDS ORDERED: ZOLPIDEM TARTRATE 5MG TABLET PO PRN (22:45)
[2019-09-29] VITALS (7 sets, daily range): BP systolic 114–151; BP diastolic 51–64
[2019-09-29] MEDS: IPRATROPIUM/ALBUTEROL 0.5-3(2.5)MG/3ML NEB HHN SCH ×4 (00:38→13:00)
[2019-09-29] MEDS: SUCRALFATE 1G TABLET PO SCH ×2 (06:27→11:45)
[2019-09-29 07:09] LABS: BASOPHILS % 0.4 % (0.0-2.0); CHLORIDE 117 mEq/L (98-107); HEMATOCRIT. 22.4 % (36.0-48.0); HEMOGLOBIN. 7.6 g/dL (12.0-16.0); LYMPHOCYTES % 14.3 % (20.0-50.0); MEAN CORPUSCULAR HEMOGLOBIN 29.4 pg (28.0-32.0); MEAN CORPUSCULAR VOLUME 86.4 fL (81.0-99.0); MEAN PLATELET VOLUME 9.5 fl (7.4-10.4); MONOCYTES % 6.9 % (2.0-8.0); NEUTROPHILS % 76.4 % (40.0-76.0); PLATELET 136 x1000/uL (130-400); RED CELL DISTRIBUTION WIDTH 15.1 % (11.6-14.6)
[2019-09-29] MEDS: PANTOPRAZOLE SODIUM 40 MG/VIAL IV SCH (08:26)
[2019-09-29] MEDS ORDERED: POTASSIUM CHLORIDE 20MEQ TABLET SR PO NR (12:15)
[2019-09-29] MEDS ORDERED: DOCUSATE SODIUM 250MG CAPSULE PO SCH (14:00)
[2019-09-29] MEDS ORDERED: DOCU250C14 MT (14:02)
[2019-09-29] MEDS ORDERED: SUCR1TAB MT (14:02)
[2019-09-29] MEDS ORDERED: FERR325T6 MT (14:02)
[2019-09-29] MEDS ORDERED: OMEP40CA34 MT (14:02)
[2019-09-29] MEDS ORDERED: FERROUS SULFATE 325MG TABLET PO SCH (17:50)
== END 2019-09-29 17:55 | disposition home health service (06) | DRG 208 ==
LOC: ER 10:38 → CVICU 11:17 → EDBEDREQ 11:25 → EDBEDREQTM 11:25 → ENRESERV 11:38 → 6WST 09-28 20:59
PROVIDERS: ADMIT Internal Medicine; ATTEND Internal Medicine
PROC: 30233N1 Transfusion of Nonautologous Red Blood Cells into Peripheral Vein, Percutaneous Approach (ICD-10-PCS; principal; 2019-09-25)
PROC: 5A1945Z Respiratory Ventilation, 24-96 Consecutive Hours (ICD-10-PCS; 2019-09-25)
PROC: 0BH17EZ Insertion of Endotracheal Airway into Trachea, Via Natural or Artificial Opening (ICD-10-PCS; 2019-09-25)
PROC: 0DB78ZX Excision of Stomach, Pylorus, Via Natural or Artificial Opening Endoscopic, Diagnostic (ICD-10-PCS; 2019-09-26)
DX: J96.00 Acute respiratory failure, unspecified whether with hypoxia or hypercapnia (principal); G93.41 Metabolic encephalopathy; N17.0 Acute kidney failure with tubular necrosis; R57.1 Hypovolemic shock; K22.11 Ulcer of esophagus with bleeding; K25.4 Chronic or unspecified gastric ulcer with hemorrhage; R57.8 Other shock; E87.6 Hypokalemia; E87.8 Other disorders of electrolyte and fluid balance, not elsewhere classified; E11.9 Type 2 diabetes mellitus without complications; E66.9 Obesity, unspecified; E78.5 Hyperlipidemia, unspecified; D69.6 Thrombocytopenia, unspecified; E78.00 Pure hypercholesterolemia, unspecified; I10 Essential (primary) hypertension; I95.9 Hypotension, unspecified; D64.9 Anemia, unspecified; K29.70 Gastritis, unspecified, without bleeding; Z85.038 Personal history of other malignant neoplasm of large intestine; Z86.73 Personal history of transient ischemic attack (TIA), and cerebral infarction without residual deficits; Z91.81 History of falling; Z85.79 Personal history of other malignant neoplasms of lymphoid, hematopoietic and related tissues; Z88.8 Allergy status to other drugs, medicaments and biological substances; Z68.34 Body mass index [BMI] 34.0-34.9, adult; Z78.1 Physical restraint status
CPT/HCPCS: 36415; 36600; 71045; 80048; 80053; 80320; 81003; 82270; 82375; 82607; 82728; 82746; 82805; 83540; 83550; 83605; 83735; 83880; 84132; 84145; 84478; 84484; 85014; 85018; 85025; 86850; 86900; 86920; 87070; 88305; 88312; 88313; 92610; 93005; 93970; 94640; 96375; 97116; 97163; 97166; 99291; C9113; J2250; J2704; J3010; J3480; J3490; J7060; J7620; P9016; G0480

== ENCOUNTER 2022-05-27 16:27 | Inpatient (IN) | payer MEDICARE, MEDICAID ==
[~2022-05-27] VITALS: Ht 167.6 cm; Wt 96.2 kg
[~2022-05-27 16:27] MED LIST changes: +AMLO10TA4 PO; +HYDR-4135 PO; +HYDR-4350 PO; -LACT1CAP58 MT; +LEVO500T90 MT; -METR-167 MT
[2022-05-27] MEDS ORDERED: SODIUM CHLORIDE 0.9% 1,000 ML IV ONE ×2 (17:00→21:15)
[2022-05-27 17:05] LABS: BASOPHILS % 1.1 % (0.0-2.0); EOSINOPHILS % 0.4 % (0.0-5.0); HEMATOCRIT. 28.1 % (36.0-48.0); LYMPHOCYTES % 28.4 % (20.0-50.0); MEAN CORPUSCULAR HEMOGLOBIN 27.6 pg (28.0-32.0); MEAN CORPUSCULAR VOLUME 85.8 fL (81.0-99.0); MEAN PLATELET VOLUME 10.3 fl (7.4-10.4); MONOCYTES % 6.6 % (2.0-8.0); NEUTROPHILS % 63.5 % (40.0-76.0); PLATELET 207 x1000/uL (130-400); RED BLOOD CELL COUNT 3.28 mill/uL (4.2-5.4); RED CELL DISTRIBUTION WIDTH 15.7 % (11.6-14.6)
[2022-05-27 17:09] LABS: CHLORIDE 104 mEq/L (98-107)
[2022-05-27 21:34] LABS: CLARITY URINE CLEAR (CLEAR); COLOR URINE YELLOW (YELLOW); KETONES URINE NEGATIVE (NEGATIVE); LEUKOCYTE ESTERASE URINE TRACE (NEGATIVE); NITRITE URINE NEGATIVE (NEGATIVE); OCCULT BLOOD URINE NEGATIVE (NEGATIVE); PH URINE 5.5 (4.5-8.0); PROTEIN URINE 1+ (NEGATIVE); SPECIFIC GRAVITY URINE 1.012 (1.005-1.030)
[2022-05-28] VITALS (8 sets, daily range): BP systolic 86–159; BP diastolic 36–73
[2022-05-28] MEDS ORDERED: DEXTROSE 50% WATER 50ML SYRINGE IV PRN (00:15)
[2022-05-28] MEDS: ACETAMINOPHEN 325MG TABLET PO PRN ×2 (00:38→22:55)
[2022-05-28] MEDS: AMLODIPINE 10MG TABLET PO SCH ×2 (00:38→09:00)
[2022-05-28] MEDS: SODIUM CHLORIDE 0.9% 1,000 ML IV SCH ×2 (00:39→13:50)
[2022-05-28 06:35] LABS: HEMOGLOBIN 7.9 g/dL (12.0-16.0); MEAN CORPUSCULAR HEMOGLOBIN 27.6 pg (28.0-32.0); MEAN CORPUSCULAR VOLUME 90.3 fL (81.0-99.0); PLATELET 179 x1000/uL (130-400); RED BLOOD CELL COUNT 2.88 mill/uL (4.2-5.4); RED CELL DISTRIBUTION WIDTH 16.1 % (11.6-14.6)
[2022-05-28] MEDS: BLOOD SUGAR DIAGNOSTIC STRIP TEST SCH ×2 (06:42→12:49)
[2022-05-28] MEDS: INSULIN LISPRO 100 UNITS/ML SUBCUT SCH ×2 (07:35→12:50)
[2022-05-28] MEDS ORDERED: CEFTRIAXONE 1 G PREMIX 50 ML IV SCH (10:30)
[2022-05-28] MEDS ORDERED: GABA-532 MT (12:15)
[2022-05-28] MEDS ORDERED: APIX2.5T MT (12:15)
[2022-05-28] MEDS ORDERED: LISI40TA13 MT (12:15)
[2022-05-28] MEDS: CEFTRIAXONE 1,000 MG in DEXTROSE 5% WATER 50 ML IV SCH (13:50)
[2022-05-28] MEDS ORDERED: NALOXONE HCL 0.4MG/ML VIAL IV PRN (15:15)
[2022-05-28] MEDS: HYDROCODONE/ACETAMINOPHEN 5/325MG TABLET PO PRN (16:03)
[2022-05-28 21:00] LABS: ETHANOL BLOOD < 10 mg/dL; T4 FREE 1.19 ng/dL (0.76-1.46)
[2022-05-28 21:14] LABS: VITAMIN B12 SERUM 1411 pg/mL (211-911)
[2022-05-28 21:17] LABS: FOLIC ACID (FOLATE) SERUM > 20.00 ng/mL (>5.38)
[2022-05-29] VITALS: BP 104/44
[2022-05-29 04:00] VITALS: BP 132/49
[2022-05-29 08:00] VITALS: BP 128/59
[2022-05-29 08:08] LABS: HEMATOCRIT. 26.5 % (36.0-48.0); HEMOGLOBIN. 8.4 g/dL (12.0-16.0); MEAN CORPUSCULAR HEMOGLOBIN 27.4 pg (28.0-32.0); MEAN CORPUSCULAR VOLUME 86.5 fL (81.0-99.0); MEAN PLATELET VOLUME 11.4 fl (7.4-10.4); PLATELET 157 x1000/uL (130-400); RED BLOOD CELL COUNT 3.06 mill/uL (4.2-5.4); RED CELL DISTRIBUTION WIDTH 15.5 % (11.6-14.6)
[2022-05-29] MEDS: HYDROCODONE/ACETAMINOPHEN 5/325MG TABLET PO PRN ×3 (11:24→20:29)
[2022-05-29 12:00] VITALS: BP 118/55
[2022-05-29] MEDS: CEFTRIAXONE 1,000 MG in DEXTROSE 5% WATER 50 ML IV SCH (13:29)
[2022-05-29 14:26] LABS: PLATELET ESTIMATE NORMAL
[2022-05-29] MEDS: SODIUM CHLORIDE 0.9% 1,000 ML IV SCH (15:46)
[2022-05-29 16:00] VITALS: BP 89/50
[2022-05-29 20:00] VITALS: BP 104/46
[2022-05-29] MEDS ORDERED: ZOLPIDEM TARTRATE 5MG TABLET PO PRN (22:45)
[2022-05-30] VITALS: BP 112/49
[2022-05-30 04:00] VITALS: BP 102/50
[2022-05-30] MEDS: SODIUM CHLORIDE 0.9% 1,000 ML IV SCH (05:21)
[2022-05-30] MEDS: HYDROCODONE/ACETAMINOPHEN 5/325MG TABLET PO PRN ×2 (05:22→12:32)
[2022-05-30 08:00] VITALS: BP 133/63
[2022-05-30 12:00] VITALS: BP 130/77
[2022-05-30] MEDS: CEFTRIAXONE 1,000 MG in DEXTROSE 5% WATER 50 ML IV SCH (12:33)
[2022-05-30 15:35] VITALS: BP 130/77
[2022-05-30 16:28] LABS: HEMATOCRIT. 25.8 % (36.0-48.0); HEMOGLOBIN. 8.2 g/dL (12.0-16.0); MEAN CORPUSCULAR HEMOGLOBIN 27.5 pg (28.0-32.0); MEAN CORPUSCULAR VOLUME 85.9 fL (81.0-99.0); MEAN PLATELET VOLUME 10.8 fl (7.4-10.4); PLATELET 175 x1000/uL (130-400); RED CELL DISTRIBUTION WIDTH 15.5 % (11.6-14.6)
[2022-05-30] MEDS ORDERED: LEVO500T90 MT (17:50)
[2022-05-30] MEDS ORDERED: HYDR-4001 MT (17:52)
[2022-05-30 20:50] LABS: PLATELET ESTIMATE NORMAL
[2022-06-03] MEDS ORDERED: FURO20TA4 MT (15:05)
[2022-06-03] MEDS ORDERED: LISI40TA13 MT (15:09)
[2022-06-03] MEDS ORDERED: CHOL500010 (15:09)
[2022-06-03] MEDS ORDERED: POMA1CAP MT (15:09)
[2022-06-03] MEDS ORDERED: HYDR50TA MT (15:09)
== END 2022-05-30 17:17 | disposition home or self-care (01) | DRG 917 ==
LOC: ER 16:27 → ENRESERV 20:31 → CANRESERV 20:32 → ENRESERV 20:32 → 7WST 22:12 → EDBEDREQTM 22:16 → EDBEDREQ 22:16 → EDBEDREQSVC 22:16
PROVIDERS: ADMIT Internal Medicine; ATTEND Internal Medicine
PROC: 4A10X4Z Monitoring of Central Nervous Electrical Activity, External Approach (ICD-10-PCS; principal; 2022-05-29)
DX: T40.601A Poisoning by unspecified narcotics, accidental (unintentional), initial encounter (principal); G92.8 Other toxic encephalopathy; N17.0 Acute kidney failure with tubular necrosis; J69.0 Pneumonitis due to inhalation of food and vomit; C90.00 Multiple myeloma not having achieved remission; E44.1 Mild protein-calorie malnutrition; G45.9 Transient cerebral ischemic attack, unspecified; T50.7X1A Poisoning by analeptics and opioid receptor antagonists, accidental (unintentional), initial encounter; I12.9 Hypertensive chronic kidney disease with stage 1 through stage 4 chronic kidney disease, or unspecified chronic kidney disease; D64.9 Anemia, unspecified; G89.4 Chronic pain syndrome; M75.02 Adhesive capsulitis of left shoulder; R26.89 Other abnormalities of gait and mobility; E87.6 Hypokalemia; E66.9 Obesity, unspecified; N18.9 Chronic kidney disease, unspecified; M48.02 Spinal stenosis, cervical region; Z20.822 Contact with and (suspected) exposure to COVID-19; M48.061 Spinal stenosis, lumbar region without neurogenic claudication; Z86.73 Personal history of transient ischemic attack (TIA), and cerebral infarction without residual deficits; Y92.89 Other specified places as the place of occurrence of the external cause; Z88.5 Allergy status to narcotic agent; Z79.899 Other long term (current) drug therapy; Z68.34 Body mass index [BMI] 34.0-34.9, adult; Z71.3 Dietary counseling and surveillance
CPT/HCPCS: 36415; 70551; 71045; 73560; 80048; 80053; 80061; 80076; 80320; 81003; 82140; 82607; 82746; 82962; 83036; 83605; 84145; 84439; 84443; 84481; 84484; 85025; 85027; 87426; 87493; 93005; 97162; 99285; A6261; J0696; J7030; J7060; A4315; G0480